=== PATIENT | female | born 1965 | race Caucasian/White ===

== ENCOUNTER 2021-09-06 12:56 | Emergency (ER) | payer MEDICAID ==
[~2021-09-06] VITALS: Ht 160 cm; Wt 136.4 kg
[2021-09-06] MEDS ORDERED: HYDR12.54 PO (13:05)
[2021-09-06] MEDS ORDERED: VALS40TA4 PO (13:05)
[2021-09-06] MEDS ORDERED: AMLO2.5T96 PO (13:05)
[2021-09-06 15:47] VITALS: BP 143/86
== END 2021-09-06 18:55 | disposition home or self-care (01) ==
LOC: EMS 12:56
DX: M79.605 Pain in left leg (principal); I10 Essential (primary) hypertension; Z79.899 Other long term (current) drug therapy
CPT/HCPCS: 93971; 99284; Z7502